=== PATIENT | male | born 1955 | race Two or more races ===

== ENCOUNTER 2018-07-19 08:35 | Emergency (ER) | payer OTHER ==
[~2018-07-19] VITALS: Ht 177.8 cm; Wt 81.6 kg
[~2018-07-19 08:35] MED LIST: AMBIEN10 MG; COZAAR25 MG; NEURONTIN800 MG
== END 2018-07-19 10:33 | disposition home or self-care (01) ==
LOC: ER 08:35
DX: G62.89 Other specified polyneuropathies (principal)

== ENCOUNTER 2018-07-24 08:55 | Outpatient (CLI) | payer OTHER | END 2018-07-24 08:57 | disposition home or self-care (01) | LOC: SONOGRAMA 08:55 | DX: S46.001A Unspecified injury of muscle(s) and tendon(s) of the rotator cuff of right shoulder, initial encounter (principal) ==

== ENCOUNTER 2020-06-04 08:35 | Outpatient (CLI) | payer OTHER | END 2020-06-04 08:44 | disposition home or self-care (01) | LOC: SONOGRAMA 08:35 | PROVIDERS: ATTEND Internal Medicine Gastroenterology | DX: R10.84 Generalized abdominal pain (principal) ==

== ENCOUNTER 2020-11-02 09:27 | Outpatient (CLI) | payer OTHER | END 2020-11-02 09:50 | disposition home or self-care (01) | LOC: RAD 09:27 | PROVIDERS: ATTEND Surgery Surgery of the Hand | DX: M50.323 Other cervical disc degeneration at C6-C7 level (principal); M71.541 Other bursitis, not elsewhere classified, right hand; M65.4 Radial styloid tenosynovitis [de Quervain]; G56.03 Carpal tunnel syndrome, bilateral upper limbs ==

== ENCOUNTER 2020-12-07 10:19 | Outpatient (CLI) | payer OTHER | END 2020-12-07 10:23 | disposition home or self-care (01) | LOC: RAD 10:19 | PROVIDERS: ATTEND Surgery Surgery of the Hand | DX: Z01.811 Encounter for preprocedural respiratory examination (principal); M25.532 Pain in left wrist; M25.531 Pain in right wrist ==

== ENCOUNTER 2021-02-10 13:51 | Outpatient (CLI) | payer OTHER | END 2021-02-10 15:24 | disposition home or self-care (01) | LOC: OFIC 805 13:51 | PROVIDERS: ATTEND Otolaryngology Otology & Neurotology | DX: R04.0 Epistaxis (principal) ==

== ENCOUNTER → 2021-09-21 08:00 | Outpatient (CLI) | payer OTHER | END | disposition home or self-care (01) | LOC: LAB 08:00 | PROVIDERS: ATTEND Internal Medicine Hematology & Oncology | DX: I10 Essential (primary) hypertension (principal); D50.8 Other iron deficiency anemias; R79.9 Abnormal finding of blood chemistry, unspecified; R74.02 Elevation of levels of lactic acid dehydrogenase [LDH]; K76.89 Other specified diseases of liver; D63.8 Anemia in other chronic diseases classified elsewhere; D51.8 Other vitamin B12 deficiency anemias; E03.8 Other specified hypothyroidism; E06.3 Autoimmune thyroiditis; R97.0 Elevated carcinoembryonic antigen [CEA]; R97.8 Other abnormal tumor markers; R97.20 Elevated prostate specific antigen [PSA]; D51.3 Other dietary vitamin B12 deficiency anemia; E78.2 Mixed hyperlipidemia; G90.09 Other idiopathic peripheral autonomic neuropathy ==

== ENCOUNTER 2022-01-12 07:10 | Outpatient (CLI) | payer OTHER | END 2022-01-12 07:17 | disposition home or self-care (01) | LOC: LAB 07:10 | PROVIDERS: ATTEND Internal Medicine Hematology & Oncology | DX: D51.3 Other dietary vitamin B12 deficiency anemia (principal); I10 Essential (primary) hypertension; E78.2 Mixed hyperlipidemia; G90.09 Other idiopathic peripheral autonomic neuropathy ==

== ENCOUNTER 2022-09-16 09:01 | Outpatient (CLI) | payer OTHER | END 2022-09-16 09:05 | disposition home or self-care (01) | LOC: LAB 09:01 | PROVIDERS: ATTEND Internal Medicine Hematology & Oncology | DX: D50.8 Other iron deficiency anemias (principal); R79.9 Abnormal finding of blood chemistry, unspecified; I10 Essential (primary) hypertension; R74.02 Elevation of levels of lactic acid dehydrogenase [LDH]; K76.89 Other specified diseases of liver; E55.9 Vitamin D deficiency, unspecified; E03.8 Other specified hypothyroidism; C25.9 Malignant neoplasm of pancreas, unspecified; R97.0 Elevated carcinoembryonic antigen [CEA]; R97.8 Other abnormal tumor markers; R97.20 Elevated prostate specific antigen [PSA] ==

== ENCOUNTER → 2023-01-31 | Outpatient (CLI) | payer OTHER | END | disposition home or self-care (01) | LOC: RAD 09:55 | PROVIDERS: ATTEND Internal Medicine Cardiovascular Disease | DX: R07.9 Chest pain, unspecified (principal) ==

== ENCOUNTER → 2023-09-29 08:58 | Outpatient (CLI) | payer OTHER ==
[2023-09-29 09:55] LABS: CREATININE SERUM 1.19 mg/dL (0.70-1.30)
== END | disposition home or self-care (01) ==
LOC: LAB 08:58
PROVIDERS: ATTEND Radiology Diagnostic Radiology
DX: R10.9 Unspecified abdominal pain (principal)